=== PATIENT | male | born 1975 | race Caucasian/White ===

== ENCOUNTER 2016-07-22 03:50 | Emergency (ER) | payer OTHER ==
--- NOTE | ~2016-07-22 | CT4 ---
[facility] A Service of [facility] RADIOLOGY TEXT RESULTS PATIENT: MAYURI GRIFFIN LOCATION: [facility] : 79 UNIT #: [id number] AGE: [address]: VENKATA LUDWIG APRN SEX: M ORDER DR: [id number] [facility]. [place], [place] [address] [id number] MR#: [id number] Acc #: [id number] NAME: MAYURI GRIFFIN. : 1975 SEX: M STUDY DATE/TIME: 07/22/2016 4:31 UNIT: [facility] ROOM: STUDY DESCRIPTION: CT Abd and Pelv Wo Cont Attending Physician: Venkata Ludwig Aprn Ordering Physician: Venkata Ludwig Aprn Primary Care Physician: No Primary Care Physician MEDICAL IMAGING REPORT This report is preliminary unless electronic signature is present EXAM CT abdomen and pelvis, noncontrast, 07/22/2016 HISTORY 41-year-old male in the ED complaining of 1-week history of flank pain and pelvic pain. TECHNIQUE CT examination of the abdomen and pelvis without oral or IV contrast using kidney stone protocol. This CT exam was performed with one or more of the following radiation dose reduction techniques: automatic control, adjustment of mA and/or kV according to patient size, and iterative reconstruction. FINDINGS ABDOMEN FINDINGS: 3 mm obstructing calculus in the left distal ureter at the UVJ causing minimal left hydronephrosis. Kidneys, ureters and bladder are otherwise negative with no additional stone material. Liver, pancreas and spleen are normal in size and appearance. Nondistended gallbladder. No bile duct dilatation. Small bowel and colon are normal in caliber and appearance, as imaged. The appendix is normal. Normal-caliber abdominal aorta. PELVIS FINDINGS: Prostate and rectum are negative. No significant inguinal hernia. Limited lung base images are negative. IMPRESSION 1. Obstructing 3 mm left distal ureter calculus at the UVJ causing minimal left hydronephrosis. 2. The remainder of the examination is negative. [facility] A Service of [facility] RADIOLOGY TEXT RESULTS PATIENT: MAYURI GRIFFIN [id number] : 79 UNIT #: [id number] AGE: [address]: VENKATA LUDWIG APRN SEX: M ORDER DR: Dictated by... Lester Martínez M.D. THIS IS AN ELECTRONICALLY VERIFIED REPORT Lester Martínez M.D. at 07/22/2016 5:53 AM PATRICIA/waldo TD: 07/22/2016 05:20 JOB #: [id number] MEDICAL IMAGING REPORT Page 1 of 1 COPY
[~2016-07-22 03:50] MED LIST: ASPIRIN81 M2 PO; CIPRO PO; COREG3.125 MG PO; COREG6.25 M1 PO; FISH OIL 1,0001 CAP PO; FLOMAX0.4 M1; FLOMAX0.4 M1 PO; KETOPROFEN PO; LEVAQUIN PO; LEVAQUIN750 MG PO; LORTAB 10/500 T1 TAB PO; LORTAB 5/500 TA1 TA1 PO; NEXIUM; NEXIUM PO; NIACIN; OMEPRAZOLE20 M2 PO; PERCOCET10 PO; PERCOCET5/325 PO; PERCOCET7.5 PO; PHENERGAN PO; PHENERGAN25 MG PO; SIMVASTATIN20 MG PO; STADOL NS; TRILIPIX PO; TYLENOL325 M1 PO; VOLTAREN75 MG PO; WELLBUTRIN PO
[2016-07-22 04:50] LABS: BASOPHIL# 0.1 X10e3 (0-0.3); BASOPHIL% 1.3 % (0-2.5); EOSINOPHIL# 0.3 X10e3 (0-0.7); HEMATOCRIT 46.1 % (38.0-50.0); HEMOGLOBIN 15.4 gm/dL (13.0-16.0); LYMPHOCYTE# 2.3 X10e3 (1.0-3.5); LYMPHOCYTE% 30.2 % (17.0-45.0); MEAN CELL VOLUME 84.4 FL (83-96); MEAN CORPUSCULAR HEMOGLOBIN 28.3 PG (28-34); MEAN CORPUSCULAR HGB CONC 33.5 g/dL (30-36); MEAN PLATELET VOLUME 8.6 FL (6.5-11.5); MONOCYTE# 0.7 X10e3 (0-1.0); MONOCYTE% 9.1 % (3.0-12.0); NEUTROPHIL# 4.3 X10e3 (1.5-7.1); NEUTROPHIL% 55.4 % (40-75); PLATELET COUNT 135 X10e3 (140-420); RED BLOOD COUNT 5.46 X10e (3.90-5.60); RED CELL DISTRIBUTION WIDTH 14.1 % (11.0-15.5); WHITE BLOOD COUNT 7.8 X10e3 (4.0-10.5)
[2016-07-22 04:51] LABS: DIFF IND NO
[2016-07-22 05:16] LABS: BUN/CREATININE RATIO 15.83; CREATININE SERUM 1.2 mg/dL (0.6-1.4); GLOM FILT RATE Estimated 75.7 mL/min (>60); POTASSIUM 3.8 mmol/L (3.5-5.1)
[2016-07-22 05:51] LABS: URINE APPEARANCE CLEAR; URINE BILIRUBIN NEG (NEG); URINE BLOOD 4+ (NEG); URINE COLOR YELLOW; URINE GLUCOSE NORM (NORM); URINE KETONE NEG (NEG); URINE LEUKOCYTE ESTERASE NEG (NEG); URINE NITRATE NEG (NEG); URINE PROTEIN 1+ (NEG); URINE UROBILINOGEN NORM (NORM)
[2016-07-22 05:53] LABS: CULTURE INDICATED? YES; URBCS1 AUWI 50-100 /[HPF] (0-2); URINE BACTERIA AUWI 1+ (NEGATIVE)
== END 2016-07-22 08:38 | disposition home or self-care (01) ==
LOC: CED 03:50
PROVIDERS: Nurse Practitioner Family
DX: N13.2 Hydronephrosis with renal and ureteral calculous obstruction (principal); I25.2 Old myocardial infarction; K21.9 Gastro-esophageal reflux disease without esophagitis; F17.210 Nicotine dependence, cigarettes, uncomplicated
CPT/HCPCS: 36415; 74176; 80048; 81003; 85025; 87086; 96365; 96375; 99284; J0696; J1885; J2270; J2405